=== PATIENT | female | born 1940 | race Caucasian/White ===

== ENCOUNTER 2018-03-03 14:39 | Emergency (ER) | payer MEDICARE, BC ==
--- NOTE | 2018-03-03 15:38 | EDM.PDOC ---
ED HPI GENERAL MEDICAL PROBLEM - General Chief Complaint: Cardiovascular Problem Stated Complaint: HIGH BP Time Seen by Provider: 03/03/18 15:25 Source of Information: Reports: Patient, Old Records, RN History Limitations: Reports: No Limitations - History of Present Illness INITIAL COMMENTS - FREE TEXT/NARRATIVE: 78 yo female with no pHx of HTN was screened today and found to have HTN. She went to the clinic and even though she is asymptomatic they referred her to the ER. She thinks she had a normal BP about 3 mos ago in the clinic. Onset: Unknown/Unsure Onset Date: 03/03/18 (first noted today) Quality: Reports: Other (no pain) Severity: Moderate Improves with: Reports: Rest Worsens with: Reports: None Context: Reports: Other (no pHx of HTN) Associated Symptoms: Reports: No Other Symptoms Treatments ZOOKEEPER: Reports: Other (see below) (none) - Related Data Allergies Allergy/AdvReac Type Severity Reaction Status Date / Time adhesive Allergy Cannot Verified 09/03/14 14:19 Remember Home Meds: Home Meds Calcium Carbonate [Tums] 500 mg PO ASDIRECTED PRN 09/03/14 [History] Fluticasone Propionate [Flonase] 2 sprays NS DAILY 09/03/14 [History] Furosemide [Lasix] 20 mg PO ASDIRECTED PRN 09/03/14 [History] Ibuprofen [Advil] 2 cap PO DAILY 09/03/14 [History] Omeprazole [Prilosec] 20 mg PO BID 09/03/14 [History] PEG 400/Propylene Glycol [Systane 0.4-0.3%] 1 drop EYEBOTH BID 09/03/14 [History ] Pravastatin [Pravachol] 20 mg PO BID 09/03/14 [History] Simethicone [Gas-X] 80 mg PO ASDIRECTED PRN 09/03/14 [History] Telmisartan [Micardis] 80 mg PO DAILY #30 tab 03/03/18 [Rx] Past Medical History Cardiovascular History: Reports: High Cholesterol - Infectious Disease History Infectious Disease History: Reports: Chicken Pox, Measles, Mumps Social & Family History - Tobacco Use Smoking Status *Q: Never Smoker - Caffeine Use Caffeine Use: Reports: Coffee, Soda, Tea - Alcohol Use Days Per Week of Alcohol Use: 0 - Recreational Drug Use Recreational Drug Use: No ED ROS GENERAL - Review of Systems Review Of Systems: See Below Constitutional: Reports: No Symptoms HEENT: Reports: No Symptoms Respiratory: Reports: No Symptoms Cardiovascular: Reports: No Symptoms Endocrine: Reports: No Symptoms GI/Abdominal: Reports: No Symptoms : Reports: No Symptoms Musculoskeletal: Reports: No Symptoms Skin: Reports: No Symptoms Neurological: Reports: No Symptoms ED EXAM, GENERAL - Physical Exam Exam: See Below Exam Limited By: No Limitations General Appearance: Alert, WD/WN, No Apparent Distress Eye Exam: Bilateral Eye: Normal Inspection Ears: Normal External Exam, Normal Canal, Hearing Grossly Normal, Normal TMs Ear Exam: Bilateral Ear: Auricle Normal, Canal Normal, TM normal Nose: Normal Inspection, Normal Mucosa, No Blood Throat/Mouth: Normal Inspection, Normal Lips, Normal Oropharynx, Normal Voice, No Airway Compromise Head: Atraumatic, Normocephalic Neck: Normal Inspection, Supple Respiratory/Chest: No Respiratory Distress, Lungs Clear, Normal Breath Sounds, No Accessory Muscle Use Cardiovascular: Regular Rate, Rhythm, No Edema GI/Abdominal: Normal Bowel Sounds, Soft, Non-Tender, No Distention Back Exam: Normal Inspection. No: CVA Tenderness (R), CVA Tenderness (L) Extremities: Normal Inspection, Normal Range of Motion, Non-Tender, No Pedal Edema Neurological: Alert, Oriented, CN II-XII Intact, Normal Cognition, No Motor/ Sensory Deficits Psychiatric: Normal Affect, Normal Mood Skin Exam: Warm, Dry, Intact, Normal Color, No Rash Lymphatic: No Adenopathy Course - Vital Signs Last Recorded V/S: Last Vital Signs Temp 35.3 C 03/03/18 14:56 Pulse 67 03/03/18 14:56 Resp 18 03/03/18 14:56 BP 221/78 H 03/03/18 14:56 Pulse Ox 97 03/03/18 14:56 - Orders/Labs/Meds Labs: Laboratory Tests 03/03/18 Range/Units 15:34 Sodium 145 (140-148) mmol/L Potassium 3.6 (3.6-5.2) mmol/L Chloride 108 (100-108) mmol/L Carbon Dioxide 29 (21-32) mmol/L Anion Gap 8.4 (5.0-14.0) mmol/L BUN 18 (7-18) mg/dL Creatinine 1.1 H (0.6-1.0) mg/dL Est Cr Clr Drug Dosing 32.83 mL/min Estimated GFR (MDRD) 48 L (>60) Glucose 109 H (74-106) mg/dL Calcium 8.8 (8.5-10.1) mg/dL Departure - Departure Time of Disposition: 16:31 Disposition: Home, Self-Care 01 Condition: Good Clinical Impression: HTN, goal below 140/80 Referrals: PCP,None [Primary Care Provider] - Forms: ED Department Discharge
== END 2018-03-03 16:58 | disposition home or self-care (01) ==
LOC: JP.ED 14:39
DX: I10 Essential (primary) hypertension (principal); E78.00 Pure hypercholesterolemia, unspecified; Z91.048 Other nonmedicinal substance allergy status; Z79.899 Other long term (current) drug therapy
CPT/HCPCS: 36415; 80048; 99284

== ENCOUNTER 2019-04-17 09:12 | Day surgery (SDC) | payer MEDICARE, BC ==
[2019-04-17] MEDS ORDERED: Lactated Ringers 1,000 ML IV SCH (10:00)
[2019-04-17] MEDS ORDERED: fentaNYL 100 MCG/2 ML SDV ONE (10:42)
[2019-04-17] MEDS ORDERED: Midazolam 1 MG/ML 2 ML SDV ONE (10:42)
[2019-04-17] MEDS ORDERED: Propofol 200 MG/20 ML SDV ONE ×2 (10:42→11:41)
[2019-04-17] MEDS ORDERED: Glucagon,Human Recombinant 1 MG Vial ONE (11:35)
--- NOTE | 2019-04-17 14:28 | CR ---
Barium Enema Comp CLINICAL HISTORY: Incomplete endoscopy FINDINGS: . There is some gaseous distention: Prior to procedure from recent colonoscopy. The Barium flowed freely from the rectum to the cecum. There are no abnormal masses in the colon. No obstructing lesions are seen. The sigmoid the and transverse colon are moderately redundant. There is sigmoid diverticulosis without evidence of diverticulitis. IMPRESSION: Diverticulosis without evidence of diverticulitis Moderately redundant: No persistent filling defects or annular constricting lesions
--- NOTE | 2019-04-18 08:04 | OR ---
DATE OF PROCEDURE: 04/17/2019 PREOPERATIVE DIAGNOSES: Change in bowel habits, possible familial history of colon cancer in mother, and possible history of ulcerative colitis. POSTOPERATIVE DIAGNOSES: Incomplete colonoscopy, only to 30 cm; change in bowel habits manifested by frequent loose stools; possible mother with colon cancer; possible history of ulcerative colitis; and diverticulosis. PROCEDURE: Attempted colonoscopy, successful only to 30 cm. SURGEON: Brian Gongora MD ANESTHESIA: IV anesthesia with monitored anesthesia care. INDICATION: This 79-year-old white female is referred for a colonoscopy because of a change in bowel habits. She says this was manifested as frequent loose stools multiple times a day. She thinks she has a history of ulcerative colitis. She believes her mother had colon cancer. I counseled her for a colonoscopy with possible biopsy and/or polypectomy, including risks and alternatives, and she gave her informed consent to proceed. Additionally, she informed me that, ten years ago, they were unable to do a colonoscopy on her. DESCRIPTION OF PROCEDURE: The patient was placed in the left lateral decubitus position. IV anesthesia was administered by the Anesthesia Service. Time-out was held. A rectal exam was performed, which was unremarkable. The flexible video Olympus colonoscope was introduced through her anus, up her rectum and out her colon. We could only get to 30 cm despite our best efforts. We could not get it to go around the corner. There was a lot of spasm present, and she did receive glucagon. This did not seem to help much. When it was clear that we were not going to be able to perform the colonoscopy, the scope was slowly withdrawn, examining the mucosa throughout. Multiple diverticula were seen. There was no bleeding or inflammation associated with them. No other lesions were noted. The scope was retroflexed in the rectum with the distal rectum appearing unremarkable. The scope was straightened and removed. She tolerated the procedure well. We will order a barium enema. I talked to the radiologist, and he says they can do it today. Brian Gongora MD /[id number] MTDD
== END 2019-04-17 14:35 | disposition home or self-care (01) ==
LOC: JP.SDS 09:12
PROVIDERS: ATTEND Surgery
DX: K57.30 Diverticulosis of large intestine without perforation or abscess without bleeding (principal); R19.4 Change in bowel habit; I10 Essential (primary) hypertension; E78.00 Pure hypercholesterolemia, unspecified
CPT/HCPCS: 45330; 74270; J1610; J2250; J2704; J3010; J7120